=== PATIENT | female | born 1975 ===

== ENCOUNTER 2018-06-28 09:50 | Outpatient (CLI) | payer OTHER | END 2018-06-28 09:51 | disposition home or self-care (01) | LOC: C.SDS 09:50 | DX: D25.9 Leiomyoma of uterus, unspecified (principal); N92.0 Excessive and frequent menstruation with regular cycle; R10.2 Pelvic and perineal pain ==

== ENCOUNTER 2018-07-06 07:44 | Observation (INO) | payer OTHER ==
[2018-06-28 10:02] VITALS: BMI 25.8
[2018-07-06] MEDS ORDERED: Bupivacaine 0.25% 20 ML INJ IJ ONE (10:17)
[2018-07-06] MEDS ORDERED: ceFAZolin 1 gm in NS 2 GM/200 ML BAG IVPB ONE (10:17)
[2018-07-06] MEDS ORDERED: Midazolam 2 MG/2 ML VIAL ONE (10:31)
[2018-07-06] MEDS ORDERED: Propofol 10 mg/ml Inj (20 ML) ONE (10:31)
[2018-07-06] MEDS ORDERED: Rocuronium 10 mg/ml (5 ml) ONE (10:50)
[2018-07-06] MEDS ORDERED: Neostigmine 1:1000 (1 mg/ml) Inj ONE (11:12)
[2018-07-06] MEDS ORDERED: Oxycodone/Acetaminophen 5/325 mg Tab PO PRN (12:28)
[2018-07-06] MEDS: HYDROmorphone 0.5 mg/0.5 ml ISec IVP PRN ×2 (12:58→14:07)
[2018-07-06] MEDS ORDERED: BUPIVACAINE 0.125%/0.9% NACL 600 ML IJ ONE (13:15)
[2018-07-06] MEDS ORDERED: Lactated Ringer's 1,000 ML IV ONE (13:34)
--- NOTE | 2018-07-06 17:58 | OP ---
PROCEDURE DATE: 07/06/2018 PREOPERATIVE DIAGNOSES: Menorrhagia, pelvic pain. POSTOPERATIVE DIAGNOSES: Menorrhagia, pelvic pain. PROCEDURE: Robotic-assisted hysterectomy, cystoscopy with stent placement. SURGEON: Amara De La Cruz MD COUNTRY PRINTER: Oziel Hightower MD. He was helpful in creating exposure and obtaining hemostasis, extraction of the specimen, and closure of the patient. The procedure would not be possible without his assistance. TYPE OF ANESTHESIA: General. ESTIMATED BLOOD LOSS: 75 mL. DRAINS: The Castillo catheter put out approximately 800 mL of clear urine. The patient received 1800 mL of D5 LR intraoperatively. OPERATIVE FINDINGS: An 8-week size uterus, irregular contour. Normal ovaries and tubes were noted. On cystoscopy, bilateral clear efflux of urine was identified and dome of the bladder was noted to be intact. DESCRIPTION OF PROCEDURE: After informed consent was obtained, the patient was taken to the operating room where she was given general anesthesia. She was prepped and draped in a normal sterile fashion and lower extremities were placed in dolphin stirrups. Attention was then turned to the urethra where the cystoscope was inserted into the bladder. The intertrochanteric ridge was identified, the left ureter was identified, it stented with a 5-Nepali catheter and injected with 5 mL of ICG green. A similar procedure was performed on the right. The cystoscope was then removed from the bladder. A speculum was inserted into the vagina. The cervix was visualized and grasped with a single-tooth tenaculum. The cervix was then gently dilated and a BK uterine manipulator was inserted into the uterine cavity in order to manipulate the uterus. A Castillo catheter was inserted into the urethra to monitor the patient's urinary output. Attention was turned to the abdomen approximately 3 cm superior to the umbilicus, an 8 mm incision was made. Veress needle was inserted into the abdominal cavity. The abdomen was then insufflated to 15 mmHg. An 8 mm robotic port was then introduced into the abdominal cavity. The placement was confirmed with the laparoscope. The abdomen was then surveyed with the findings noted above. Attention was hen turned to approximately 4 cm superior to the right anterior iliac crest. Marcaine was infused and an 8-mm incision was made and a robotic port was introduced under direct visualization. A similar procedure was performed on the left approximately 10 cm right lateral to the umbilicus. An 8 mm incision was made and a robotic port was introduced under direct visualization. Approximately 10 cm left and lateral to the umbilicus, a 5 mm incision was made and robotic port was introduced under direct visualization; and an hr administrative assistant port was introduced under direct visualization. The patient was then placed in deep Trendelenburg. The table was lowered and the robot was brought along the patient's side and docked without complication. The instruments used for the surgery were a PK dissector Jonas suture cut, scissor, and ProGrasp. Attention was then turned to the utero-ovarian ligament. It was serially coagulated and transected with the scissors. The fallopian tube was then elevated and it was excised. The round ligament was then identified, serially coagulated and transected with scissors. The vesicouterine peritoneum was then undermined with the PK dissector and transected down to the level of the VCare cup anteriorly. Attention was then turned to the posterior aspect of the uterus in similar fashion. It was undermined with the PK dissector and transected down to the level of the VCare cup posteriorly. The uterine artery was then identified. The ureter was identified. The artery was then serially coagulated and transected with scissors to the level of the VCare cup. Attention was turned to the right side of the uterus in a similar fashion. The utero-ovarian ligament was identified, serially coagulated, and transected with scissors. The fallopian tube was elevated and dissected up towards the cornua. The round ligament was then identified, serially coagulated, and transected with scissors. The vesicouterine peritoneum was then undermined and excised with a scissor down to the level of the VCare cup anteriorly. Attention was then turned to the posterior aspect of the uterus in a similar fashion. The posterior peritoneum was undermined, elevated up, and transected with scissors. The uterine arteries were then identified. They were skeletonized and then serially coagulated at the level of the VCare cup. The uterus and cervix were then amputated using hot brunilda from the vagina. The vaginal cuff was closed with 2-0 and a barbed suture. The abdomen was then copiously irrigated. The irrigant was removed with suction device. The cuff was noted to be hemostatic. Approximately four fingerbreadths above the symphysis pubis, an introducer was inserted into the abdomen and an On-Q catheter was inserted and placed along the vaginal cuff. All instruments were then removed from the abdomen. The patient was undocked from the robot successfully. The abdominal incisions were repaired with 3-0 Biosyn and Dermabond. All sponge, lap, needle, and instrument counts were correct x2. The patient was taken to the recovery room in awake and stable condition. Amara De La Cruz MD
[2018-07-06] MEDS: Lactated Ringer's 1,000 ML IV SCH (20:02)
[2018-07-06] MEDS: Oxycodone/Acetaminophen 5/325 mg Tab PO PRN (22:46)
[2018-07-07] MEDS: Lactated Ringer's 1,000 ML IV SCH (04:26)
[2018-07-07] MEDS: Oxycodone/Acetaminophen 5/325 mg Tab PO PRN ×3 (05:57→16:06)
[2018-07-07 08:15] VITALS: RESP 18
[2018-07-07 08:27] LABS: HEMOGLOBIN 10.8 g/dL (11.0-16.0); MEAN CELL VOLUME 90.8 fL (81.0-99.0); MEAN CORPUSCULAR HEMOGLOBIN 31.4 pg (27.0-31.0); MEAN CORPUSCULAR HGB CONC 34.6 g/dL (33.0-37.0); RBC 3.44 Mil/uL (3.80-5.20); RED CELL DISTRIBUTION WIDTH 13.8 % (11.5-14.5)
--- NOTE | 2018-07-07 09:36 | CP.SDSHP ---
Same Day Surgery H & P - Allergies Allergies: Allergies No Known Allergies Allergy (Verified 11/28/17 12:13) - Physical Exam Vital Signs: Vital Signs 07/07/18 08:14 Temperature 98.9 F Pulse Rate 77 Respiratory 18 Rate Blood Pressure 98/65 L O2 Sat by Pulse 97 Oximetry Short Stay Discharge - Short Stay Discharge Admitting Diagnosis/Reason for Visit: ROBOTIC HYSTERECTOMY Progress Note/Discharge Note with Instructions: doing well ambilating tolerating diet pain well controlled vss afebrile abd soft nt nd ext no homans pod 1 will d/c home f/u with valeri in one week nothing per vagina no heavy lifting
[2018-07-07 16:45] VITALS: BP 92/62; PULSE 84; TEMP 98.2; O2SAT 98
== END 2018-07-07 17:00 | disposition home or self-care (01) ==
LOC: C.SDS 07:44 → C.9S 12:28 → C.4M 14:25
PROVIDERS: ADMIT Obstetrics & Gynecology Gynecology; ATTEND Obstetrics & Gynecology Gynecology
DX: N80.0 Endometriosis of uterus (principal); D25.1 Intramural leiomyoma of uterus; D25.0 Submucous leiomyoma of uterus; D25.2 Subserosal leiomyoma of uterus
CPT/HCPCS: 36415; 52000; 58571; 85027; 86850; 86900; 88307; G0378; J0690; J1170; J1885; J2001; J2250; J2405; J2704; J2710; J3010; J7120